=== PATIENT | female | born 1985 | race African-American/Black ===

== ENCOUNTER → 2020-01-08 | Outpatient (CLI) | payer OTHER ==
[~2020-01-08] MED LIST: IOPAMIDOL 370 MG/ML 200 ML INFUS..BTL INJ ONE; NITROGLYCERIN 0.4 MG SUBL ONE; SODIUM CHLORIDE 0.9% 50ML 50 ML ONE
[2020-01-08 08:41] LABS: BLOOD UREA NITROGEN 13 mg/dL (7-26); BUN/CREATININE RATIO 16 (6-25); CREATININE, SERUM 0.82 mg/dL (0.57-1.11); EST GLOMERULAR FILTRATION RATE > 60 ML/MIN (60-)
--- NOTE | 2020-01-09 08:59 | Diagnostic Imaging Report ---
EXAM: CALCIUM SCORE AND CORONARY CTA INDICATION: ^[id number] ^0900 ^CP/ABN ECG COMPARISON: None. TECHNIQUE: Multi-detector CT technology was employed ([address] 750 HD 64 MDCT [place]). Minimal slice thickness was performed following the intravenous administration of contrast material. The patient was premedicated with 0.4 mg sublingual nitroglycerin for coronary dilation. There was no need to administer evidence of local due to low heart rate during the exam. IV CONTRAST: 100 mL of Isovue-370 ORAL CONTRAST: None COMPLICATIONS: None RADIATION DOSE: Total DLP: 1519.6 mGy*cm Estimated effective dose: (DLP x 0.015 x size factor) mSv CTDIvol has been reviewed. It is below the limits set by the Radiation Protocol Committee (RPC). For optimization of anatomic evaluation, multiplanar reconstruction, maximum intensity projections, and advanced 3-D off-line postprocessing were performed on a dedicated stand-alone workstation under the direct supervision of the interpreting physician. QUALITY: FAIR FINDINGS: CALCIUM SCORE: The observed Agatston Calcium Score of 0 is at percentile 50% for subjects of the same age and gender who are free of clinical cardiovascular disease and treated diabetes. The Agatston score for each vessel is as follows: LM: 0 LAD: 0 LCx: 0 RCA: 0 DISTRIBUTION OF THE CALCIFIED PLAQUES: No identifiable calcified plaques in the coronary arteries. CORONARY ANATOMY: There is normal origin of the coronary arteries. Left Main Coronary Artery: The left main is normal sized vessel that bifurcates into the LAD and circumflex. There is no evidence of atherosclerotic changes or stenotic disease. Left Anterior Descending Coronary Artery: The LAD is a normal size vessel that wraps around the apex. It gives rise to 2 acute diagonal branches. There is no evidence of atherosclerotic changes or stenotic disease. Left Circumflex Coronary Artery: The LCX is a normal size vessel, which is non-dominant. It gives rise to 1 obtuse marginal branches. There is no evidence of atherosclerotic changes or stenotic disease. Right Coronary Artery: The RCA is a normal size vessel, which is dominant. It gives rise to a conus branch, AV jaimee branch, and 2 acute marginal branches. In its distal segment it bifurcates into the PDA and PV branch. There is no evidence of atherosclerotic changes or stenotic disease. Evaluation of the mid segment is limited due to motion artifact but does not appear to be significant lesion. CARDIAC MORPHOLOGY AND FUNCTION: The right and left atria and ventricles are morphologically normal. There is normal resting global left ventricular systolic function. LVEF: 69.9%, LV end diastolic volume: 136.4 cc LV end systolic volume: 41 cc LV stroke volume: 95.3 cc LIMITED CHEST: Limited views of the visualized chest show no abnormality within chest wall and mediastinum. No mediastinal lymphadenopathy. The visualized lungs are clear. The visualized portions of the ascending and descending thoracic aorta are of normal size. Small hiatal hernia. LIMITED ABDOMEN: Limited images of the upper abdomen reveal no abnormalities of the visualized organs. BONES: No acute osseous abnormalities. IMPRESSION: 1. Total Agatston Calcium Score: 0 that corresponds to percentile 50%, representing no identifiable calcified plaques in the coronary arteries. 2. Normal coronary anatomy without evidence of atherosclerotic changes or stenotic disease. CAD-MARNIE: 0 Reference: J Cardiovasc Comput Tomogr. Nov-Dec 2015;10(4):269-81. 3. Small hiatal hernia. Signed by: Dr. Maris Peng M.D. on 01/09/2020 8:56 AM
--- NOTE | 2020-01-09 10:55 | NUR ---
called pt for followup no answer
== END ==
LOC: CT 07:43
PROVIDERS: ATTEND Internal Medicine Cardiovascular Disease
DX: R07.9 Chest pain, unspecified (principal); R94.31 Abnormal electrocardiogram [ECG] [EKG]
CPT/HCPCS: 36415; 75574; 81025; 82565; 84520; Q9967